=== PATIENT | male | born 1955 | race Caucasian/White ===

== ENCOUNTER 2019-07-16 14:14 | Emergency (ER) | payer OTHER ==
[~2019-07-16] VITALS: Ht 175.3 cm; Wt 87.9 kg
[2019-07-16] MEDS ORDERED: ASPI81TA85 PO (14:28)
[2019-07-16] MEDS ORDERED: ELIQ5TAB PO (14:28)
[2019-07-16] MEDS ORDERED: NITR0.4S14 SL (14:29)
[2019-07-16] MEDS ORDERED: ATOR80TA59 PO (14:29)
[2019-07-16] MEDS ORDERED: MULTCAP PO (14:29)
[2019-07-16] MEDS ORDERED: METO1TAB87 PO (14:29)
[2019-07-16] MEDS ORDERED: MELO15TA28 PO (14:29)
[2019-07-16] MEDS ORDERED: LIDO5DIS41 TOP (17:06)
[2019-07-16] MEDS ORDERED: CYCL5TAB PO (17:06)
[2019-07-16] MEDS ORDERED: LIDOCAINE 5% (LIDODERM) PATCH TD ONE (17:15)
[2019-07-16 17:23] VITALS: BP 175/87
[2019-07-16] MEDS ORDERED: **NOTE PATIENT COMMENT** MISC XX SCH (21:00)
== END 2019-07-16 17:23 | disposition home or self-care (01) ==
LOC: M ED 14:14
DX: S39.012A Strain of muscle, fascia and tendon of lower back, initial encounter (principal); X58.XXXA Exposure to other specified factors, initial encounter; Y92.89 Other specified places as the place of occurrence of the external cause; I25.2 Old myocardial infarction; E78.5 Hyperlipidemia, unspecified; Z95.5 Presence of coronary angioplasty implant and graft; Z79.899 Other long term (current) drug therapy; Z79.82 Long term (current) use of aspirin

== ENCOUNTER 2024-02-27 16:57 | Emergency (ER) | payer OTHER ==
[~2024-02-27] VITALS: Ht 175.3 cm; Wt 84.5 kg
[~2024-02-27 16:57] MED LIST: ASPI81TA86 PO; ATOR80TA59 PO; CYCL5TAB4 PO; ELIQ5TAB PO; LIDO5DIS41 TOP; MELO15TA28 PO; METO1TAB87 PO; MULTCAP PO; NITR0.4S14 SL
[2024-02-27] MEDS ORDERED: ACE65ERTAB PO (17:05)
[2024-02-27] MEDS ORDERED: CELE400C PO (17:05)
[2024-02-27] MEDS ORDERED: DICL20GE TP (21:59)
[2024-02-27 22:09] VITALS: BP 162/84; TEMP 98.4; O2SAT 99
== END 2024-02-27 22:10 | disposition home or self-care (01) ==
LOC: M ED 16:57
DX: R22.33 Localized swelling, mass and lump, upper limb, bilateral (principal); I25.2 Old myocardial infarction; I10 Essential (primary) hypertension; E78.5 Hyperlipidemia, unspecified; Z79.82 Long term (current) use of aspirin; Z79.02 Long term (current) use of antithrombotics/antiplatelets; Z79.899 Other long term (current) drug therapy